=== PATIENT | female | born 1960 | race Caucasian/White ===

== ENCOUNTER 2016-10-15 16:01 | Emergency (ER) | payer OTHER ==
[~2016-10-15] VITALS: Ht 162.6 cm; Wt 101.7 kg
[~2016-10-15 16:01] MED LIST: ABILIFY5 MG PO; ASPIR 8181 M1 PO; ASPIR-LOW81 MG PO; ATARAX,VISTARIL50 MG PO; AUGMENTIN500 MG PO; AUGMENTIN875 MG PO; BUSPAR15 MG PO; CO Q-10200 MG PO; CRESTOR20 MG PO; DEMADEX20 MG PO; ELAVIL10 MG PO; ESCITALOPRAM OX10 MG PO; KLONOPIN1 MG PO; LAMICTAL25 MG PO; LAMOTRIGINE100 MG PO; LEVOTHYROXINE100 MCG PO; LEXAPRO10 MG PO; LEXAPRO20 MG PO; LIPITOR10 MG PO; LIPITOR5 MG PO; LITHIUM CARBON300 MG PO; MOTRIN600 MG PO; NOLVADEX10 MG PO; NOLVADEX20 MG PO; OXCARBAZEPINE300 MG PO; PAROXETINE HCL40 MG PO; PEN-VEE K,VEET500 MG; PEN-VEE K,VEET500 MG PO; PEPCID20 MG PO; PERCOCET 5/31 TABLET PO; PREDNISONE10 MG PO; PREDNISONE20 MG PO; PROAIR HFA8.5 GM IH; QUETIAPINE FUMA25 MG PO; ROBITUSSIN NIG118 ML PO; ROXICODONE5 MG PO; SYNTHROID100 MCG PO; SYNTHROID25 MCG; SYNTHROID50 MCG PO; TAMOXIFEN CITRA20 MG PO; TESSALON PERLE100 MG PO; TRICOR48 MG PO; TRILEPTAL300 MG PO; TRILEPTAL600 MG; TRILEPTAL600 MG PO; VALIUM5 MG PO; VALTREX50 MG/ML PO; VENTOLIN HFA18 GM IH; WELLBUTRIN SR200 MG PO; ZITHROMAX Z-PA250 MG PO; [UNRECOGNIZED DRUG - REMARK]
[2016-10-15 17:05] LABS: HEMATOCRIT 39.7 % (36.0-46.0); MCH 30.6 PG (29.0-34.0); MCHC 34.3 G/DL (30.0-36.0); MCV 89.4 FL (83-99); MEAN PLAT.VOLUME 9.7 uM^3 (9.5-12.4); PLATELET COUNT 297 K/uL (156-360); RBC DIS.WIDTH-CV 12.6 % (11.8-14.6); RBC DIS.WIDTH-SD 40.6 % (39-53); RED BLOOD COUNT 4.44 M/uL (3.80-5.20); WHITE BLOOD COUNT 8.8 K/uL (4.1-10.2)
[2016-10-15 17:07] LABS: CARBON DIOXIDE (BICARBONATE) 31.2 MEQ/L (20-31)
[2016-10-15 17:14] LABS: CHLORIDE 106 mEq/L (99-109); POTASSIUM 3.9 mEq/L (3.7-5.4); SODIUM 143 mEq/L (136-147)
[2016-10-15 17:16] LABS: GLUCOSE 165 mg/dL (70-99)
[2016-10-15 17:17] LABS: ANION GAP 12 MEQ/L (2-14)
[2016-10-15 17:19] LABS: GFR ESTIMATE (CALCULATED) 50 mL/min/
[2016-10-15 17:20] LABS: UREA NITROGEN (BUN) 14 mg/dL (9-23)
[2016-10-15 17:27] LABS: TROP-I INTERPRETATION NEGATIVE; TROPONIN-I 0.01 ng/mL (0.0-0.30)
[2016-10-15] MEDS ORDERED: LEVAQUIN750 MG PO (17:40)
[2016-10-15] MEDS ORDERED: PROVENTIL HFA6.7 GM IH (17:41)
[2016-10-15] MEDS ORDERED: PREDNISONE20 MG PO (17:45)
[2016-10-15 17:52] VITALS: BP 132/84
== END 2016-10-15 17:53 | disposition home or self-care (01) ==
LOC: EME 16:01
PROVIDERS: Emergency Medicine
DX: R07.9 Chest pain, unspecified (principal); J20.9 Acute bronchitis, unspecified; E03.9 Hypothyroidism, unspecified; Z79.82 Long term (current) use of aspirin; Z87.891 Personal history of nicotine dependence
CPT/HCPCS: 71020; 80048; 82803; 83605; 83880; 84484; 85027; 87040; 93005; 99281; 99285; J7512

== ENCOUNTER 2016-11-19 16:30 | Observation (INO) | payer OTHER ==
[~2016-11-19] VITALS: Ht 160 cm; Wt 104.9 kg
[~2016-11-19 16:30] MED LIST changes: +LEVAQUIN750 MG PO; +PROVENTIL HFA6.7 GM IH
[2016-11-19 17:22] LABS: HEMATOCRIT 39.2 % (36.0-46.0); MCH 30.4 PG (29.0-34.0); MCHC 33.7 G/DL (30.0-36.0); MCV 90.3 FL (83-99); MEAN PLAT.VOLUME 9.6 uM^3 (9.5-12.4); PLATELET COUNT 281 K/uL (156-360); RBC DIS.WIDTH-CV 12.5 % (11.8-14.6); RBC DIS.WIDTH-SD 41.3 % (39-53); RED BLOOD COUNT 4.34 M/uL (3.80-5.20); WHITE BLOOD COUNT 8.6 K/uL (4.1-10.2)
[2016-11-19 17:37] LABS: CHLORIDE 107 mEq/L (99-109); POTASSIUM 4.1 mEq/L (3.7-5.4); SODIUM 137 mEq/L (136-147)
[2016-11-19 17:40] LABS: GLUCOSE 103 mg/dL (70-99)
[2016-11-19 17:41] LABS: ANION GAP 8 MEQ/L (2-14)
[2016-11-19 17:42] LABS: TOTAL BILIRUBIN 0.4 mg/dL (0.0-1.0)
[2016-11-19 17:43] LABS: ALKALINE PHOSPHATASE 115 IU/L (3-129); GFR ESTIMATE (CALCULATED) 50 mL/min/
[2016-11-19 17:44] LABS: TROP-I INTERPRETATION NEGATIVE; TROPONIN-I 0.03 ng/mL (0.0-0.30); UREA NITROGEN (BUN) 12 mg/dL (9-23)
[2016-11-19 17:47] LABS: LIPASE 27 U/L (1.0-51.0)
[2016-11-19 17:55] LABS: QUANTITATIVE HCG < 4.0 MIU/ML
[2016-11-19 19:49] LABS: ADD MIUA? YES; BILIRUBIN NEGATIVE; BLOOD NEGATIVE; COLOR YELLOW ((YELLOW)); GLUCOSE (STRIP) NEGATIVE; KETONES NEGATIVE; LEUKOCYTES SMALL; NITRITE NEGATIVE; PROTEIN (STRIP) NEGATIVE; SPECIFIC GRAVITY 1.026 (1.000-1.030); UROBILINOGEN 0.2 MG/DL (0.2-1.0)
[2016-11-19 19:55] LABS: BACTERIA RARE /HPF; EPITHELIAL CELLS RARE /HPF; HYALINE CASTS 0-5 /LPF; MUCUS TRACE /LPF; RED BLOOD CELLS 0-5 /HPF (0-5)
[2016-11-19 20:11] LABS: TROP-I INTERPRETATION NEGATIVE; TROPONIN-I 0.03 ng/mL (0.0-0.30)
[2016-11-19] MEDS ORDERED: VENTOLIN HFA18 GM IH (21:54)
[2016-11-19] MEDS ORDERED: SYNTHROID88 MCG PO (21:56)
[2016-11-19] MEDS ORDERED: LIPITOR40 MG PO (21:59)
[2016-11-19] MEDS ORDERED: ADDERALL20 MG PO (21:59)
[2016-11-19] MEDS ORDERED: ARTHROTEC 501 TABLET PO (21:59)
[2016-11-19] MEDS ORDERED: VRAYLAR3 MG PO (21:59)
[2016-11-19] MEDS ORDERED: FEMARA2.5 MG PO (22:00)
[2016-11-19] MEDS ORDERED: VITAMIN D400 UNI1 PO (22:00)
[2016-11-19] MEDS ORDERED: LAMICTAL25 MG PO (22:00)
[2016-11-19] MEDS ORDERED: CLONAZEPAM0.5 MG PO (22:00)
[2016-11-19] MEDS ORDERED: TIZANIDINE HCL2 MG PO (22:00)
[2016-11-19] MEDS ORDERED: FISH OIL300 MG PO (22:00)
[2016-11-19] MEDS ORDERED: CALCIUM600 M1 PO (22:01)
[2016-11-20 00:02] VITALS: BP 113/56
[2016-11-20 04:32] VITALS: BP 120/67
[2016-11-20 07:19] VITALS: BP 126/68
[2016-11-20 10:55] VITALS: BP 141/76
[2016-11-20 12:35] LABS: TROP-I INTERPRETATION NEGATIVE; TROPONIN-I < 0.01 ng/mL (0.0-0.30)
[2016-11-20 15:57] VITALS: BP 128/78
[2016-11-20 20:25] VITALS: BP 135/60
[2016-11-20] MEDS ORDERED: CEFDINIR300 MG PO (21:27)
[2016-11-20] MEDS ORDERED: VENTOLIN HFA18 GM IH (21:27)
[2016-11-20] MEDS ORDERED: GUAIFENESIN AC473 ML PO (21:27)
== END 2016-11-20 21:58 | disposition home or self-care (01) ==
LOC: EME 16:30 → 5WEST 22:23 → EDOF 22:23 → 5WEST 23:47
PROVIDERS: Internal Medicine; Physician Assistant Medical
DX: J44.0 Chronic obstructive pulmonary disease with (acute) lower respiratory infection (principal); J20.9 Acute bronchitis, unspecified; J44.1 Chronic obstructive pulmonary disease with (acute) exacerbation; R07.9 Chest pain, unspecified; Z85.3 Personal history of malignant neoplasm of breast; E03.9 Hypothyroidism, unspecified; E78.5 Hyperlipidemia, unspecified; F32.9 Major depressive disorder, single episode, unspecified; Z87.891 Personal history of nicotine dependence; E66.9 Obesity, unspecified; Z68.41 Body mass index [BMI] 40.0-44.9, adult
CPT/HCPCS: 71020; 71275; 80053; 81003; 83690; 83880; 84484; 84702; 85027; 85379; 93005; 94640; 94640 76; 94760; 99202; 99281; 99285; G0378; J0696; J1650; J2930; J7030; J7050

== ENCOUNTER 2017-04-27 05:58 | Emergency (ER) | payer OTHER ==
[~2017-04-27] VITALS: Ht 162.6 cm; Wt 105.3 kg
[~2017-04-27 05:58] MED LIST changes: +ADDERALL20 MG PO; +ARTHROTEC 501 TABLET PO; +CALCIUM600 M1 PO; +CEFDINIR300 MG PO; +CLONAZEPAM0.5 MG PO; +FEMARA2.5 MG PO; +FISH OIL300 MG PO; +GUAIFENESIN AC473 ML PO; +LIPITOR40 MG PO; +SYNTHROID88 MCG PO; +TIZANIDINE HCL2 MG PO; +VITAMIN D400 UNI1 PO; +VRAYLAR3 MG PO
[2017-04-27 06:44] LABS: HEMATOCRIT 38.4 % (36.0-46.0); MCH 30.4 PG (29.0-34.0); MCHC 33.9 G/DL (30.0-36.0); MCV 89.9 FL (83-99); MEAN PLAT.VOLUME 9.9 uM^3 (9.5-12.4); PLATELET COUNT 264 K/uL (156-360); RBC DIS.WIDTH-CV 12.5 % (11.8-14.6); RBC DIS.WIDTH-SD 40.9 % (39-53); RED BLOOD COUNT 4.27 M/uL (3.80-5.20); WHITE BLOOD COUNT 6.1 K/uL (4.1-10.2)
[2017-04-27 06:53] LABS: CHLORIDE 109 mEq/L (99-109); POTASSIUM 4.3 mEq/L (3.7-5.4); SODIUM 139 mEq/L (136-147)
[2017-04-27 06:55] LABS: GLUCOSE 120 mg/dL (70-99)
[2017-04-27 06:56] LABS: ANION GAP 7 MEQ/L (2-14)
[2017-04-27 06:57] LABS: TOTAL BILIRUBIN 0.5 mg/dL (0.0-1.0)
[2017-04-27 06:59] LABS: ALKALINE PHOSPHATASE 130 IU/L (3-129); GFR ESTIMATE (CALCULATED) > 59 mL/min/
[2017-04-27 07:00] LABS: UREA NITROGEN (BUN) 12 mg/dL (9-23)
[2017-04-27 08:34] LABS: TROP-I INTERPRETATION NEGATIVE; TROPONIN-I < 0.01 ng/mL (0.0-0.30)
[2017-04-27] MEDS ORDERED: ALBUTEROL2.5 MG/3 M IH (09:02)
[2017-04-27] MEDS ORDERED: TESSALON200 MG PO (09:02)
[2017-04-27] MEDS ORDERED: FLEXERIL10 MG PO (09:02)
[2017-04-27] MEDS ORDERED: DELTASONE20 M1 PO (09:02)
[2017-04-27 09:23] VITALS: BP 133/77
== END 2017-04-27 09:47 | disposition home or self-care (01) ==
LOC: EME 05:58
PROVIDERS: Nurse Practitioner Family
DX: J44.1 Chronic obstructive pulmonary disease with (acute) exacerbation (principal); Z87.891 Personal history of nicotine dependence; E78.5 Hyperlipidemia, unspecified; E03.9 Hypothyroidism, unspecified; Z85.3 Personal history of malignant neoplasm of breast; Z79.82 Long term (current) use of aspirin
CPT/HCPCS: 71020; 80053; 84484; 85027; 94640; 99281; 99284; J7512

== ENCOUNTER 2017-09-21 06:12 | Emergency (ER) | payer OTHER ==
[~2017-09-21] VITALS: Ht 160 cm; Wt 107.9 kg
[~2017-09-21 06:12] MED LIST changes: +ALBUTEROL2.5 MG/3 M IH; +ANORO ELLIPTA1 EACH IH; +ATORVASTATIN CA40 MG PO; +DELTASONE20 M1 PO; +ESCITALOPRAM OX20 MG PO; +FISH OIL 1,0001 EAC7 PO; +FLEXERIL10 MG PO; +FUROSEMIDE40 MG PO; +LAMOTRIGINE150 MG PO; +LEVOTHYROXINE88 MCG PO; +LYRICA50 MG PO; +MODAFINIL200 MG PO; +POTASSIUM CHLO10 ME3 PO; +TESSALON200 MG PO; +TRAMADOL HCL50 MG PO; +VITAMIN D31000 UNI2 PO
[2017-09-21 07:31] LABS: HEMATOCRIT 39.3 % (36.0-46.0); HEMOGLOBIN 13.6 G/DL (11.9-15.5); MCH 31.6 PG (29.0-34.0); MCHC 34.6 G/DL (30.0-36.0); MCV 91.2 FL (83-99); PLATELET COUNT 263 K/uL (156-360); RBC DIS.WIDTH-CV 12.7 % (11.8-14.6); RBC DIS.WIDTH-SD 42.1 % (39-53); RED BLOOD COUNT 4.31 M/uL (3.80-5.20); WHITE BLOOD COUNT 6.4 K/uL (4.1-10.2)
[2017-09-21 07:51] LABS: ALBUMIN 4.2 g/dL (3.2-4.8); CHLORIDE 108 mEq/L (99-109); POTASSIUM 4.8 mEq/L (3.7-5.4); SODIUM 139 mEq/L (136-147)
[2017-09-21 07:53] LABS: GLUCOSE 111 mg/dL (70-99)
[2017-09-21 07:54] LABS: TOTAL PROTEIN 6.9 g/dL (6.4-8.3)
[2017-09-21 07:55] LABS: TOTAL BILIRUBIN 0.4 mg/dL (0.0-1.0)
[2017-09-21 07:57] LABS: ALKALINE PHOSPHATASE 154 IU/L (3-129); GFR ESTIMATE (CALCULATED) > 59 mL/min/
[2017-09-21 07:58] LABS: UREA NITROGEN (BUN) 15 mg/dL (9-23)
[2017-09-21 07:59] LABS: AST (GOT) 22 IU/L (2-34)
[2017-09-21 08:00] LABS: ALT (GPT) 38 IU/L (3-49)
[2017-09-21 08:08] LABS: ERTH.SED.RATE 23 MM/HR (0-30)
[2017-09-21 08:55] LABS: C-REACTIVE PROTEIN 10.5 MG/L (0-10)
[2017-09-21 09:00] VITALS: BP 125/86
[2017-09-21 09:56] LABS: THYROTROPIN (TSH) 5.2 MIU/L (0.4-5.5)
[2017-09-23 05:37] LABS: DRVVT Mixing Study Interp Not Indicated (()); PTT-LA 33 sec (<=40); dRVVT Screen 41 sec (<=45)
== END 2017-09-21 09:16 | disposition home or self-care (01) ==
LOC: EME 06:12
PROVIDERS: Emergency Medicine
DX: M25.50 Pain in unspecified joint (principal); M79.1 Myalgia; Z85.3 Personal history of malignant neoplasm of breast; J44.9 Chronic obstructive pulmonary disease, unspecified; F41.9 Anxiety disorder, unspecified; E78.5 Hyperlipidemia, unspecified; E03.9 Hypothyroidism, unspecified; F32.9 Major depressive disorder, single episode, unspecified; Z87.891 Personal history of nicotine dependence; M06.9 Rheumatoid arthritis, unspecified; Z88.5 Allergy status to narcotic agent; Z79.82 Long term (current) use of aspirin
CPT/HCPCS: 71046; 80053; 83880; 84443; 85027; 85613 90; 85652; 85730 90; 86140; 93005; 99281; 99284